=== PATIENT | female | born 1975 | race African-American/Black ===

== ENCOUNTER 2021-06-10 04:44 | Emergency (ER) | payer MEDICAID ==
[~2021-06-10] VITALS: Ht 167.6 cm; Wt 99.8 kg
[2021-06-10] MEDS ORDERED: KETOROLAC TROMETHAMINE 15 MG/ML VIAL ONE (04:54)
[2021-06-10] MEDS ORDERED: KETOROLAC TROMETHAMINE INJ 30 MG/ML VIAL IV ONE (05:00)
[2021-06-10] MEDS ORDERED: IV NS 0.9% 1,000 ML IV ONE (05:00)
[2021-06-10 05:09] LABS: BASOPHILS # (AUTO) 0.1 K/uL (0.0-0.2); BASOPHILS % (AUTO) 1.7 % (0.0-2.0); EOSINOPHILS % (AUTO) 2.9 % (0.0-6.0); HEMATOCRIT 38 % (33-45); HEMOGLOBIN 12.5 g/dL (11.5-14.8); LYMPHOCYTES # (AUTO) 0.5 K/uL (0.8-4.8); LYMPHOCYTES % (AUTO) 10.8 % (20.0-44.0); MEAN CORPUSCULAR HGB CONC 33 g/dl (31.0-36.0); MEAN CORPUSCULAR VOLUME 94 fL (82-100); MONOCYTES # (AUTO) 0.2 K/uL (0.1-1.30); MONOCYTES % (AUTO) 5.3 % (2.0-12.0); NEUTROPHILS # (AUTO) 3.7 K/uL (1.8-8.9); NEUTROPHILS % (AUTO) 79.3 % (43.0-81.0); PLATELET COUNT (AUTO) 265 K/uL (150-450); RED BLOOD CELL COUNT(AUTO) 3.99 MIL/uL (4.0-5.2); WHITE BLOOD COUNT (AUTO) 4.7 K/uL (4.3-11.0)
--- NOTE | 2021-06-10 05:15 | NUR ---
PATIENT CAME IN WITH C/O BODY ACHES W/ HEADACHE, BACK PAIN, AND DIARRHEA FOR THE PAST 2 DAYS. PATIENT STATES FEELING HOT AND COLD FLASHES. PATIENT IS A/O X 4, RR EVEN AND UNLABORED, NO SIGNS OF SOB NOTED. PATIENT IS CONNECTED TO MOBILE APPLICATION ARCHITECT AND POX.
[2021-06-10 05:26] LABS: CALCIUM, SERUM 7.9 mg/dL (8.5-10.1); CREATININE 0.7 mg/dL (0.6-1.3); POTASSIUM 4.3 mmol/L (3.5-5.1)
[2021-06-10] MEDS ORDERED: KETO10TA2 PO (05:41)
--- NOTE | 2021-06-10 05:56 | NUR ---
IV removed. Catheter intact and site benign. Pressure and 4x4 applied to site. No bleeding noted.
[2021-06-10 05:57] VITALS: BP 124/76
--- NOTE | 2021-06-10 05:57 | NUR ---
Patient discharged to home in stable condition. Written and verbal after care instructions given. Patient verbalizes understanding of instruction.
== END 2021-06-10 05:57 | disposition home or self-care (01) ==
LOC: ER 04:49
DX: T14.8XXA Other injury of unspecified body region, initial encounter (principal); R19.7 Diarrhea, unspecified; X58.XXXA Exposure to other specified factors, initial encounter; Y93.89 Activity, other specified; Y92.89 Other specified places as the place of occurrence of the external cause; Y99.8 Other external cause status
CPT/HCPCS: 36415; 80048; 82550; 85025; 96361; 96374; 99283; J1885; J7030